=== PATIENT | female | born 1945 | race Caucasian/White ===

== ENCOUNTER → 2017-01-10 16:27 | Outpatient (CLI) | payer MEDICARE, OTHER ==
[2012-12-05 18:33] VITALS: BMI 31.0
== END | disposition home or self-care (01) ==
LOC: D.MAMMO 13:45
DX: Z12.31 Encounter for screening mammogram for malignant neoplasm of breast (principal)

== ENCOUNTER 2017-02-20 08:33 | Outpatient (CLI) | payer MEDICARE, OTHER ==
[2012-12-05 18:33] VITALS: BMI 31.0
== END 2017-02-20 14:23 ==
LOC: D.MAMMO 08:33
DX: R92.8 Other abnormal and inconclusive findings on diagnostic imaging of breast (principal)

== ENCOUNTER → 2017-08-21 12:12 | Outpatient (CLI) | payer MEDICARE, OTHER ==
[2012-12-05 18:33] VITALS: BMI 31.0
== END | disposition home or self-care (01) ==
LOC: D.MAMMO 09:00
DX: R92.8 Other abnormal and inconclusive findings on diagnostic imaging of breast (principal)

== ENCOUNTER 2018-03-04 08:00 | Outpatient (CLI) | payer MEDICARE, OTHER ==
[2012-12-05 18:33] VITALS: BMI 31.0
== END 2018-03-04 11:29 | disposition home or self-care (01) ==
LOC: D.MAMMO 08:00
DX: Z12.31 Encounter for screening mammogram for malignant neoplasm of breast (principal)

== ENCOUNTER 2019-02-24 12:00 | Outpatient (CLI) | payer MEDICARE, OTHER ==
[2012-12-05 18:33] VITALS: BMI 31.0
== END 2019-02-24 13:00 | disposition home or self-care (01) ==
LOC: D.MAMMO 12:00
PROVIDERS: ATTEND Family Medicine
DX: Z12.31 Encounter for screening mammogram for malignant neoplasm of breast (principal)

== ENCOUNTER 2020-04-28 17:00 | Outpatient (CLI) | payer MEDICARE, OTHER ==
[2012-12-05 18:33] VITALS: BMI 31.0
== END 2020-04-28 23:59 | disposition home or self-care (01) ==
LOC: D.MAMMO 17:00
PROVIDERS: ATTEND Family Medicine
DX: Z12.31 Encounter for screening mammogram for malignant neoplasm of breast (principal)

== ENCOUNTER → 2020-12-13 15:09 | Outpatient (CLI) | payer MEDICARE, OTHER ==
[2012-12-05 18:33] VITALS: BMI 31.0
[2020-12-13 15:42] LABS: BASOPHILS 0.5 % (0-2); HEMOGLOBIN 10.1 g/dL (12-16); IMMATURE GRANULOCYTES 0.1 % (0-5); LYMPHOCYTE ABS# 2.38 10x3/uL (1.18-3.74); LYMPHOCYTES 29.4 % (15-50); MCH 28.8 pg (26.0-34.0); MCHC 31.6 g/dL (31.0-37.0); MCV 91.2 fL (80.0-100.0); MEAN PLATELET VOLUME 9.9 fL (7.4-10.4); MONOCYTES 9.8 % (2-11); NEUTROPHILS 53.2 % (40-80); RBC 3.51 10x6/uL (4.00-5.40); RDW 14.1 % (11.5-14.5); WBC 8.1 10x3/uL (4.8-10.8)
[2020-12-13 15:43] LABS: PLATELET COUNT 451 10x3/uL (130-400)
[2020-12-13 15:57] LABS: C-REACTIVE PROTEIN 4.4 mg/dL (0.0-0.9); CREATININE - SERUM 0.7 mg/dL (0.6-1.3)
[2020-12-13 16:45] LABS: ERYTHROCYTE SEDIMENTATION RATE 87 mm/hr (0-30)
== END | disposition home or self-care (01) ==
LOC: D.LABREF 15:09
PROVIDERS: ATTEND Internal Medicine Infectious Disease
DX: T84.59XA Infection and inflammatory reaction due to other internal joint prosthesis, initial encounter (principal); A48.8 Other specified bacterial diseases

== ENCOUNTER → 2020-12-20 16:21 | Outpatient (CLI) | payer MEDICARE, OTHER ==
[2020-12-20 16:35] LABS: BASOPHILS 0.6 % (0-2); EOSINOPHILS 11.8 % (0-7); HEMATOCRIT 33.4 % (36.0-48.0); HEMOGLOBIN 10.3 g/dL (12-16); IMMATURE GRANULOCYTES 0.1 % (0-5); LYMPHOCYTE ABS# 1.81 10x3/uL (1.18-3.74); LYMPHOCYTES 26.1 % (15-50); MCH 28.9 pg (26.0-34.0); MCHC 30.8 g/dL (31.0-37.0); MCV 93.8 fL (80.0-100.0); MEAN PLATELET VOLUME 10.6 fL (7.4-10.4); MONOCYTES 11.1 % (2-11); NEUTROPHIL ABS# 3.48 10x3/uL (1.56-6.13); NEUTROPHILS 50.3 % (40-80); PLATELET COUNT 435 10x3/uL (130-400); RBC 3.56 10x6/uL (4.00-5.40); RDW 14.7 % (11.5-14.5); WBC 6.9 10x3/uL (4.8-10.8)
[2020-12-20 16:49] LABS: C-REACTIVE PROTEIN 1.7 mg/dL (0.0-0.9); CREATININE - SERUM 0.8 mg/dL (0.6-1.3); VANCOMYCIN - TROUGH 19.3 ug/mL (10.0-20.0)
[2020-12-20 18:13] LABS: ERYTHROCYTE SEDIMENTATION RATE 31 mm/hr (0-30)
== END | disposition home or self-care (01) ==
LOC: D.LABREF 16:21
PROVIDERS: Internal Medicine Infectious Disease
DX: T84.59XA Infection and inflammatory reaction due to other internal joint prosthesis, initial encounter (principal)

== ENCOUNTER → 2020-12-27 15:26 | Outpatient (CLI) | payer MEDICARE, OTHER ==
[2012-12-05 18:33] VITALS: BMI 31.0
[2020-12-27 15:45] LABS: BASOPHILS 0.9 % (0-2); EOSINOPHILS 12.6 % (0-7); HEMATOCRIT 33.9 % (36.0-48.0); HEMOGLOBIN 10.7 g/dL (12-16); IMMATURE GRANULOCYTES 0.2 % (0-5); LYMPHOCYTE ABS# 2.23 10x3/uL (1.18-3.74); LYMPHOCYTES 33.9 % (15-50); MCH 29.4 pg (26.0-34.0); MCHC 31.6 g/dL (31.0-37.0); MCV 93.1 fL (80.0-100.0); MEAN PLATELET VOLUME 11.3 fL (7.4-10.4); MONOCYTES 12.8 % (2-11); NEUTROPHILS 39.6 % (40-80); PLATELET COUNT 373 10x3/uL (130-400); RBC 3.64 10x6/uL (4.00-5.40); RDW 14.8 % (11.5-14.5); WBC 6.6 10x3/uL (4.8-10.8)
[2020-12-27 16:01] LABS: C-REACTIVE PROTEIN 1.3 mg/dL (0.0-0.9); CREATININE - SERUM 0.8 mg/dL (0.6-1.3); VANCOMYCIN - TROUGH 13.8 ug/mL (10.0-20.0)
[2020-12-27 17:29] LABS: ERYTHROCYTE SEDIMENTATION RATE 26 mm/hr (0-30)
== END | disposition home or self-care (01) ==
LOC: D.LABREF 15:26
PROVIDERS: ATTEND Internal Medicine Infectious Disease
DX: T84.59XA Infection and inflammatory reaction due to other internal joint prosthesis, initial encounter (principal)

== ENCOUNTER → 2021-01-03 18:22 | Outpatient (CLI) | payer MEDICARE, OTHER ==
[2012-12-05 18:33] VITALS: BMI 31.0
[2021-01-03 19:23] LABS: BASOPHILS 0.7 % (0-2); HEMATOCRIT 35.8 % (36.0-48.0); HEMOGLOBIN 11.2 g/dL (12-16); IMMATURE GRANULOCYTES 0.2 % (0-5); LYMPHOCYTE ABS# 1.77 10x3/uL (1.18-3.74); LYMPHOCYTES 31.3 % (15-50); MCH 28.7 pg (26.0-34.0); MCHC 31.3 g/dL (31.0-37.0); MCV 91.8 fL (80.0-100.0); MEAN PLATELET VOLUME 11.2 fL (7.4-10.4); MONOCYTES 15.2 % (2-11); NEUTROPHIL ABS# 2.52 10x3/uL (1.56-6.13); NEUTROPHILS 44.6 % (40-80); PLATELET COUNT 325 10x3/uL (130-400); RDW 15.2 % (11.5-14.5); WBC 5.7 10x3/uL (4.8-10.8)
[2021-01-03 19:36] LABS: C-REACTIVE PROTEIN 0.6 mg/dL (0.0-0.9); CREATININE - SERUM 0.7 mg/dL (0.6-1.3); VANCOMYCIN - TROUGH 11.1 ug/mL (10.0-20.0)
[2021-01-03 20:31] LABS: ERYTHROCYTE SEDIMENTATION RATE 29 mm/hr (0-30)
== END | disposition home or self-care (01) ==
LOC: D.LABREF 18:22
PROVIDERS: ATTEND Internal Medicine Infectious Disease
DX: T84.59XA Infection and inflammatory reaction due to other internal joint prosthesis, initial encounter (principal)

== ENCOUNTER → 2021-01-10 13:43 | Outpatient (CLI) | payer MEDICARE, OTHER ==
[2012-12-05 18:33] VITALS: BMI 31.0
[2021-01-10 14:14] LABS: BASOPHILS 0.9 % (0-2); EOSINOPHILS 8.6 % (0-7); HEMATOCRIT 34.8 % (36.0-48.0); HEMOGLOBIN 11.4 g/dL (12-16); IMMATURE GRANULOCYTES 0.2 % (0-5); LYMPHOCYTE ABS# 1.55 10x3/uL (1.18-3.74); LYMPHOCYTES 28.2 % (15-50); MCH 29.7 pg (26.0-34.0); MCHC 32.8 g/dL (31.0-37.0); MCV 90.6 fL (80.0-100.0); MEAN PLATELET VOLUME 10.8 fL (7.4-10.4); MONOCYTES 12.2 % (2-11); NEUTROPHIL ABS# 2.74 10x3/uL (1.56-6.13); NEUTROPHILS 49.9 % (40-80); PLATELET COUNT 305 10x3/uL (130-400); RBC 3.84 10x6/uL (4.00-5.40); RDW 14.8 % (11.5-14.5); WBC 5.5 10x3/uL (4.8-10.8)
[2021-01-10 14:22] LABS: C-REACTIVE PROTEIN 1.3 mg/dL (0.0-0.9); CREATININE - SERUM 0.8 mg/dL (0.6-1.3); VANCOMYCIN - TROUGH 15.2 ug/mL (10.0-20.0)
[2021-01-10 15:40] LABS: ERYTHROCYTE SEDIMENTATION RATE 18 mm/hr (0-30)
== END | disposition home or self-care (01) ==
LOC: D.LABREF 13:43
PROVIDERS: ATTEND Family Medicine
DX: T84.59XA Infection and inflammatory reaction due to other internal joint prosthesis, initial encounter (principal)

== ENCOUNTER → 2021-01-17 15:42 | Outpatient (CLI) | payer MEDICARE, OTHER ==
[2012-12-05 18:33] VITALS: BMI 31.0
[2021-01-17 16:06] LABS: BASOPHILS 0.5 % (0-2); HEMATOCRIT 36.8 % (36.0-48.0); IMMATURE GRANULOCYTES 0.2 % (0-5); LYMPHOCYTES 29.2 % (15-50); MCH 29.3 pg (26.0-34.0); MCHC 32.6 g/dL (31.0-37.0); MEAN PLATELET VOLUME 10.8 fL (7.4-10.4); MONOCYTES 11.4 % (2-11); NEUTROPHIL ABS# 3.25 10x3/uL (1.56-6.13); NEUTROPHILS 52.7 % (40-80); PLATELET COUNT 341 10x3/uL (130-400); RBC 4.09 10x6/uL (4.00-5.40); RDW 14.6 % (11.5-14.5); WBC 6.2 10x3/uL (4.8-10.8)
[2021-01-17 16:25] LABS: C-REACTIVE PROTEIN 0.7 mg/dL (0.0-0.9); CREATININE - SERUM 0.9 mg/dL (0.6-1.3); VANCOMYCIN - TROUGH 2.6 ug/mL (10.0-20.0)
[2021-01-17 18:00] LABS: ERYTHROCYTE SEDIMENTATION RATE 20 mm/hr (0-30)
== END | disposition home or self-care (01) ==
LOC: D.LABREF 15:42
PROVIDERS: ATTEND Internal Medicine Infectious Disease
DX: T84.59XA Infection and inflammatory reaction due to other internal joint prosthesis, initial encounter (principal)